=== PATIENT | male | born 1960 | race African-American/Black ===

== ENCOUNTER 2024-07-03 15:18 | Inpatient (IN) | payer MEDICAID, OTHER ==
[~2024-07-03] VITALS: Ht 185.4 cm; Wt 77.4 kg
--- NOTE | 2024-07-03 15:48 | ED.PDOC ---
Altered Mental Status HPI Comments HPI: 64 y/o M, brought in by with PMHX of DM, CVA, bipolar disorder, and anger issues presents to the ED for CC of confusion. Per patient's , patient had x2 episodes of coughing attacks two days ago and since then the onset of his confusion symptoms started. reports some slurred speech, and slow gait following episodes. Patient reports, patient is non-complainant with DM medication. Patent blood sugar read high x2 on glucometer in ED triage. No other symptoms or modifying factors present at this time due to patient condition. VITALS: T:98.6 HR:129 RR:18 BP:115/76 SPO2:98% Past Medical History: DM, BIPOLAR DISORDER, CVA, "ANGER ISSUES" Past Surgical History:DENIES ANY HPI: Poor Historian. REVIEW OF SYSTEMS: CONSTITUTIONAL: Denies acute: fever, diaphoresis, chills, HEAD: Denies acute: headache, photophobia Eyes: Denies acute: Double vision, vision loss, eye pain, eye discharge. EARS: Denies acute: tinnitus, hearing loss, ear discharge, ear pain, THROAT: Denies acute: sore throat, swelling, difficulty swallowing , pain with swallowing, change in voice. NECK: Denies acute: neck pain, neck swelling, stiff neck. HEART: Denies acute : chest pain, palpitations, LUNGS: Denies acute: SOB, wheezing, cough, hemoptysis ABDOMEN: Denies acute: abdominal pain, Nausea, Vomiting, diarrhea, melena , hematemesis, hematochezia SKIN: Denies acute: rash, redness, lesions, itchiness. EXTREMITIES: Denies acute: calf pain, numbness, tingling, weakness, denies pain in extremity. Denies acute: Low back pain. Neuro: Denies acute: focal neurological deficit, motor or sensory focal neurological deficit, tremors, seizure like activity, loss of bowel or bladder function, cauda equina like symptoms. : Denies acute: dysuria, hematuria, flank pain, increase in urinary frequency. PSYCH: Denies acute: hallucination, suicidal ideation, homicidal ideation. PHYSICAL EXAM: General: ---mild-----acute distress, awake and alert. Head: normocephalic, atraumatic. Neck: supple, trachea is midline, no swelling. Throat: Normal phonation. Eyes:, no erythema, no purulent discharge, no proptosis, no icterus. Heart: regular tachycardic, no significant murmur appreciated. Lungs: no apparent respiratory distress, Able to speak in full sentences. No wheezing, no rhonchi, no crackles. No stridors Clear to auscultation bilaterally. Abdomen: non tender to palpation, non distended, soft, no guarding, no rebound, + bowel sounds. Neuro: Awake, Alert, oriented to name, self, situation, follows commands GCS=15. Speech is normal. Skin: no petechia, no purpura, no cyanosis, non-pale, not jaundice. Lower extremities: --trace - Pitting edema no deformity, no focal swelling, no calf TTP. Makes eye contact. moves all four extremities. Face: no apparent facial droop. Ambulating in the ED independently. Ears: Normal appearing TM b/l, Stroke: finger to nose cerebellar testing is intact. No pronator drift. PERRLA, EOM-I CN 2-12 are grossly intact, No nystagmus. No nuchal rigidity, Kernig's sign, Brudzinski's sign, no meningeal signs. ED COURSE: Chief Complaint: Confusion Time Seen by MD: 15:30 Reviewed Notes: Nurses Notes, Medications, Allergies Allergies: Coded Allergies: NO KNOWN ALLERGIES (Unverified , 07/03/24) Information Source: Relative, Spouse Mode of Arrival: Ambulatory Severity: Moderate Timing: Days Duration: Since onset Prehospital treatment: None Quality: Decreased Alertness, Change in Behavior, Confusion Recent: Cough History of: Diabetes Associated Signs and Symptoms: Slurred Speech Was a procedure done? Was a procedure done?: No Differential Diagnosis (ALOC) Differential Diagnosis: Other (DDX include CVA, TGA, cerebellar ischemia/infarct, carotid stenosis, Intracranial mass/infection/bleed, encephalopathy, electrolyte abnormality, thyroid disease, hydrocephalus, hypoglycemia, drug toxicity, cardiac arrhythmia, seizure, infection in the elderly, Hyperammonemia., kidney failure., sepsis.) X-Ray, Labs, Meds, VS Vital Signs Date Time Temp Pulse Resp B/P (MAP) Pulse Ox O2 Delivery O2 Flow Rate FiO2 07/03/24 21:00 97.9 100 18 118/63 (81) 96 97.9 07/03/24 19:35 105 18 97 Room Air* 0 21 07/03/24 19:35 97.5 105 18 122/78 (93) 97 97.5 07/03/24 18:30 112 15 111/45 (67) 98 07/03/24 16:25 119 07/03/24 16:16 123 07/03/24 16:00 98.6 122 20 138/86 (103) 93 98.6 07/03/24 16:00 122 20 93 Room Air* 0 21 07/03/24 15:36 98.6 129 18 115/76 (89) 98 98.6 Lab Test 07/03/24 19:42 07/03/24 19:30 07/03/24 18:15 07/03/24 17:31 Range/Units POC Glucose 430 *H 70-106 mg/dl Troponin I High Sensitivity 5 4 </=54 ng/L Urine Color Colorless Yellow Urine Clarity Clear Clear Urine pH 5.0 5.0-9.0 Urine Specific [place] 1.027 1.001-1.035 Urine Protein Negative Negative Urine Ketones Trace Negative Urine Blood Negative Negative /uL Urine Nitrite Negative Negative Urine Bilirubin Negative Negative Urine Urobilinogen Normal Negative mg/dL Urine Leukocyte Esterase Trace Negative /uL Urine RBC 1 0 - 3 /hpf Urine Microscopic WBC 16 H 0-3 /HPF Urine Squamous Epithelial Cells Few <5 /hpf Urine Bacteria None seen None Seen /hpf Urine Mucus Few None Seen Urine Glucose 4+ H Normal mg/dL Urine Opiates Screen Neg NEGATIVE Urine Fentanyl Screen Neg NEGATIVE Urine Barbiturates Screen Neg NEGATIVE Urine Phencyclidine Screen Neg NEGATIVE Urine Amphetamines Screen Neg NEGATIVE Urine Benzodiazepines Screen Neg NEGATIVE Urine Cocaine Screen Neg NEGATIVE Urine Cannabinoids Screen Pos NEGATIVE Test 07/03/24 16:22 07/03/24 15:54 07/03/24 15:38 07/03/24 15:37 Range/Units White Blood Count 8.3 4.4-10.8 10^3/uL Red Blood Count 3.99 L 4.5-5.90 10^6/uL Hemoglobin 12.1 L 13.5-17.5 g/dL Hematocrit 37.1 L 41.0-53.0 % Mean Corpuscular Volume 93.1 80.0-100.0 fL Mean Corpuscular Hemoglobin 30.4 28.0-32.0 pg Mean Corpuscular Hemoglobin Concent 32.6 32.0-36.0 g/dL Red Cell Distribution Width 15.2 H 11.8-14.3 % Platelet Count 197 140-450 10^3/uL Mean Platelet Volume 10.4 6.9-10.8 fL Neutrophils (%) (Auto) 75.0 37.0-80.0 % Lymphocytes (%) (Auto) 16.1 10.0-50.0 % Monocytes (%) (Auto) 7.1 0.0-12.0 % Eosinophils (%) (Auto) 1.3 0.0-7.0 % Basophils (%) (Auto) 0.5 0.0-2.0 % Neutrophils # (Auto) 6.2 1.6-8.6 10 ^3/uL Lymphocytes # (Auto) 1.3 0.4-5.4 10 ^3/uL Monocytes # (Auto) 0.6 0-1.3 10 ^3/uL Eosinophils # (Auto) 0.1 0-0.8 10 ^3/uL Basophils # (Auto) 0 0-0.2 10 ^3/uL Nucleated Red Blood Cells 0.0 % Prothrombin Time 10.0 9.3-11.8 sec Prothrombin Time INR 0.94 0.9-1.15 Activated Partial Thromboplast Time 24.1 L 24.5-34.5 SEC Sodium Level 122 L 136-145 mmol/L Potassium Level 4.4 3.5-5.1 mmol/L Chloride Level 88 L 98-107 mmol/L Carbon Dioxide Level 21 20-31 mmol/L Anion Gap 13 5-15 Blood Urea Nitrogen 20 9-23 mg/dL Creatinine 2.20 H 0.700-1.30 mg/dL Glomerular Filtration Rate Calc 33 >90 mL/min BUN/Creatinine Ratio 9.1 L 10.0-20.0 Serum Glucose 776 *H 74-106 mg/dL Lactic Acid Level 1.6 0.4-2.0 mmol/L Calcium Level 9.7 8.7-10.4 mg/dL Magnesium Level 2.5 1.6-2.6 mg/dL Total Bilirubin 0.3 0.2-1.0 mg/dL Aspartate Amino Transferase (AST) 14 13-40 U/L Alanine Aminotransferase (ALT) 17 7-40 U/L Alkaline Phosphatase 207 H 46-116 U/L Troponin I High Sensitivity 5 </=54 ng/L B-Type Natriuretic Peptide 3.47 0-100 pg/mL Total Protein 7.9 5.7-8.2 g/dL Albumin 5.0 H 3.2-4.8 g/dL Beta-Hydroxybutyric Acid 1.287 H < 0.4 mmol/L Plasma/Serum Blood Alcohol 4.6 <10 mg/dL Blood Gas Specimen Type Arterial Blood Gas Sample Site Left radial Blood Gas Patient Temperature 37.0 Arterial Blood Date Drawn [id number] Arterial Blood pH 7.430 7.350-7.450 Arterial Blood Partial Pressure CO2 33.2 L 35.0-48.0 mmHg Arterial Blood Partial Pressure O2 69.4 L 83.0-108.0 mmHg Arterial Blood HCO3 21.5 21.0-28.0 mmol/L Arterial Blood Oxygen Saturation 94.1 94.0-98.0 % Arterial Blood Base Excess -2.0 -2.0-3.0 mmol/L Arterial Blood Oxyhemoglobin 91.6 L 94.0-98.0 % Arterial Blood Carboxyhemoglobin 2.5 H 0.5-1.5 % Arterial Blood Methemoglobin 0.2 0.0-1.5 % Dank Test Yes Blood Gas Total Hemoglobin 12.60 L 13.5-17.5 g/dL Blood Gas Liter Flow 0.00 Blood Gas Modality Room air FiO2 % 21.0 POC Glucose > 600 *H > 600 *H 70-106 mg/dl Current Medications Medications (Trade) Dose Ordered Sig/[facility] Route Start Time Stop Time Status Last Admin Sodium Chloride 1,000 ml @ 1,000 mls/hr Q1H ONCE IV 07/03/24 16:15 07/03/24 17:14 DC 07/03/24 16:44 Sodium Chloride 1,000 ml @ 1,000 mls/hr Q1H ONCE IV 07/03/24 17:15 07/03/24 18:14 DC 07/03/24 18:50 Insulin Human Regular (InsuLIN R) 5 units ONCE ONCE IV 07/03/24 17:15 07/03/24 17:16 DC 07/03/24 18:[address] [address] Ph: [phone] DIAGNOSTIC IMAGING Diagnostic Imaging Report : [id number] Signed PATIENT: JULIO AGUILA ACCT: [id number] UNIT: [id number] : 1960 LOC: ER ROOM / BED: / AGE / SEX: 64 / M ADM STATUS: REG ER SERVICE 1536 ORDERING PHYSICIAN: JUAN STRANGE DO PROCEDURE(s): CXRP - CHEST PORTABLE REASON: weak ORDER NUMBER(s): [id number], ACCESSION NUMBER(s): [id number] CHEST RADIOGRAPH Indication: weak Technique: Single frontal view of the chest was obtained Comparison: None FINDINGS: Lines and Tubes: None Lungs: No focal consolidation. PROBABLE bowel gas noted below both diaphragms if pneumoperitoneum is of clinical concern recommend CT abdomen pelvis Pleura: No effusion. No pneumothorax. Cardiomediastinal contours: Unremarkable Bones: No acute osseous abnormality. IMPRESSION: 1. Mildly prominent bronchovascular markings right base. Acute versus chronic disease can not be distinguished without comparison studies. ATED BY: SHELBI BARNES Jr., DO DICTATED DATE/TIME: 07/03/241627 SIGNED BY: SHELBI BARNES Jr., SIGNED DATE/TIME: 07/03/241627 CC: [place] [id number] Ph: [phone] DIAGNOSTIC IMAGING Diagnostic Imaging Report : [id number] Signed PATIENT: JULIO AGUILA ACCT: [id number] UNIT: [id number] : 1960 LOC: ER ROOM / BED: / AGE / SEX: 64 / M ADM STATUS: REG ER SERVICE 1536 ORDERING PHYSICIAN: JUAN STRANGE DO PROCEDURE(s): HWOCT - HEAD WITHOUT CONTRAST REASON: weak ORDER NUMBER(s): [id number], ACCESSION NUMBER(s): [id number] Procedure: CT HEAD WITHOUT CONTRAST Study Date and Requested Time: 07/03/2024 04:00 PM History: weak Comparison: None Dose: CTDI: 60.01 mGy DLP: 1062.45 mGycm Technique: Multiplanar images obtained through the brain without intravenous contrast. Findings: Normal brain volume and formation. Mild chronic small vessel ischemic changes. No hemorrhages, masses, mass effect, midline shift, herniation or cytotoxic yaneth a following a large vascular territory. No intra-axial or extra-axial fluid collections. No evidence of hydrocephalus. The basal cisterns are patent. The pituitary gland, sella and parasellar regions are unremarkable. The cerebellar tonsils are in normal position. The cerebellum is unremarkable. The orbits and globes are unremarkable. Opacification of the right sphenoid sinus with bony hyperostosis of the right sphenoid sinus. Small layering fluid within the left sphenoid sinus. Mucous periosteal thickening of the left anterior maxillary sinus. Otherwise, the paranasal sinuses and mastoids are clear. There are no worrisome calvarial lesions. Impression: No evidence of acute intracranial abnormality. ATED BY: HOLLEY RAI DO DICTATED DATE/TIME: 07/03/24 1628 SIGNED BY: HOLLEY RAI DO SIGNED DATE/TIME: 07/03/24 1628 CC: Time of 1ST Reevaluation: 16:00 Reevaluation 1ST: Unchanged Patient Education/Counseling: Diagnosis, Treatment Family Education/Counseling: Diagnosis, Treatment Comments Patient presented with the above HPI.-altered mental status/possible strok e-----workup was initiated. patient was found with the above mentioned diagnosis. the following medications were ordered: please refer to order lists of meds and tests obtained by myself Dr. Strange. Patient ED course and VS have been stabilized. Patient has been reassessed in the ED and remained in a stable condition. Pertinent incidental findings were discussed with the patient and/or family. Patient/family voices understanding and is agreeable with plan. Patient has been observed in the ED adequate length of time to insure improvement/stability. Escalation of care considered: Consideration of escalation to observation or admission Sepsis protocol was initiated. Fluids and antibiotics ordered. Patient has no apparent focal deficits. Patient was ADMITTED to the medicine team for further evaluation and treatment of their presentation. All the reports of any imaging studies that were ordered by myself were reviewed by myself. Departure 1 Departure Time of Disposition: 16:22 Impression: Primary Impression: Altered mental status Additional Impressions: Hypoxemia Uncontrolled diabetes mellitus with hyperglycemia Noncompliance with medications UTI (urinary tract infection) Disposition: ADMITTED INPATIENT Admit to: Tele Condition: Guarded Additional Instructions: [place] [id number] Ph: [phone] DIAGNOSTIC IMAGING Diagnostic Imaging Report : [id number] Signed PATIENT: JULIO AGUILA ACCT: [id number] UNIT: [id number] : 1960 LOC: ER ROOM / BED: / AGE / SEX: 64 / M ADM STATUS: REG ER SERVICE 1539 ORDERING PHYSICIAN: JUAN STRANGE DO PROCEDURE(s): CXRP - CHEST PORTABLE REASON: weak ORDER NUMBER(s): [id number], ACCESSION NUMBER(s): [id number] CHEST RADIOGRAPH Indication: weak Technique: Single frontal view of the chest was obtained Comparison: None FINDINGS: Lines and Tubes: None Lungs: No focal consolidation. PROBABLE bowel gas noted below both diaphragms if pneumoperitoneum is of clinical concern recommend CT abdomen pelvis Pleura: No effusion. No pneumothorax. Cardiomediastinal contours: Unremarkable Bones: No acute osseous abnormality. IMPRESSION: 1. Mildly prominent bronchovascular markings right base. Acute versus chronic disease can not be distinguished without comparison studies. ATED BY: SHELBI BARNES Jr., DO DICTATED DATE/TIME: 07/03/241627 SIGNED BY: SHELBI BARNES Jr., SIGNED DATE/TIME: 07/03/24 162 CC: [place] [id number] Ph: [phone] DIAGNOSTIC IMAGING Diagnostic Imaging Report : [id number] Signed PATIENT: JULIO AGUILA ACCT: [id number] UNIT: [id number] : 1960 LOC: ER ROOM / BED: / AGE / SEX: 64 / M ADM STATUS: REG ER SERVICE 1536 ORDERING PHYSICIAN: JUAN STRANGE DO PROCEDURE(s): HWOCT - HEAD WITHOUT CONTRAST REASON: weak ORDER NUMBER(s): [id number], ACCESSION NUMBER(s): [id number] Procedure: CT HEAD WITHOUT CONTRAST Study Date and Requested Time: 07/03/2024 04:00 PM History: weak Comparison: None Dose: CTDI: 60.01 mGy DLP: 1062.45 mGycm Technique: Multiplanar images obtained through the brain without intravenous contrast. Findings: Normal brain volume and formation. Mild chronic small vessel ischemic changes. No hemorrhages, masses, mass effect, midline shift, herniation or cytotoxic edema following a large vascular territory. No intra-axial or extra-axial fluid collections. No evidence of hydrocephalus. The basal cisterns are patent. The pituitary gland, sella and parasellar regions are unremarkable. The cerebellar tonsils are in normal position. The cerebellum is unremarkable. The orbits and globes are unremarkable. Opacification of the right sphenoid sinus with bony hyperostosis of the right sphenoid sinus. Small layering fluid within the left sphenoid sinus. Mucous periosteal thickening of the left anterior maxillary sinus. Otherwise, the paranasal sinuses and mastoids are clear. There are no worrisome calvarial lesions. Impression: No evidence of acute intracranial abnormality. ATED BY: HOLLEY RAI DO DICTATED DATE/TIME: 07/03/241627 SIGNED BY: HOLLEY RAI DO SIGNED DATE/TIME: 07/03/24 162 CC: Discharged With: Self Critical Care Note Critical Care Time?: Yes (45 min-critical care time only) Heart Score Heart Score: Heart Score Response (Comments) Value History N/A 0 EKG N/A 0 Age N/A 0 Risk Factors N/A 0 Troponin N/A 0 Total 0 I personally scribed for JUAN STRANGE DO ([email or web address]) on 07/03/24 at 15:48. Electronically submitted by Margarita Puente ([email or web address]). I personally scribed for JUAN STRANGE DO ([email or web address]) on 07/03/24 at 16:14. Electronically submitted by Margarita Puente ([email or web address]). I personally scribed for JUAN STRANGE DO ([email or web address]) on 07/03/24 at 16:32. Electronically submitted by Margarita Puente ([email or web address]). I personally scribed for JUAN STRANGE DO ([email or web address]) on 07/03/24 at 16:33. Electronically submitted by Margarita Puente ([email or web address]). I personally scribed for JUAN STRANGE DO ([email or web address]) on 07/03/24 at 16:35. Electronically submitted by Margarita Puente ([email or web address]). JUAN STRANGE DO Jul 03, 2024 15:48
[2024-07-03 16:00] VITALS: PULSE 122; RESP 20; O2SAT 93
--- NOTE | 2024-07-03 16:30 | DVH ---
Procedure: CT HEAD WITHOUT CONTRAST Study Date and Requested Time: 07/03/2024 04:00 PM History: weak Comparison: None Dose: CTDI: 60.01 mGy DLP: 1062.45 mGycm Technique: Multiplanar images obtained through the brain without intravenous contrast. Findings: Normal brain volume and formation. Mild chronic small vessel ischemic changes. No hemorrhages, masses, mass effect, midline shift, herniation or cytotoxic edema following a large v ascular territory. No intra-axial or extra-axial fluid collections. No evidence of hydrocephalus. The basal cisterns are patent. The pituitary gland, sella and parasellar regions are unremarkable. The cerebellar tonsils are in nor mal position. The cerebellum is unremarkable. The orbits and globes are unremarkable. Opacification of the right sphenoid sinus with bony hyperosto sis of the right sphenoid sinus. Small layering fluid within the left sphenoid sinus. Mucous perioste al thickening of the left anterior maxillary sinus. Otherwise, the paranasal sinuses and mastoids ar e clear. There are no worrisome calvarial lesions. Impression: No evidence of acute intracranial abnormality.
--- NOTE | 2024-07-03 16:31 | DVH ---
CHEST RADIOGRAPH Indication: weak Technique: Single frontal view of the chest was obtained Comparison: None FINDINGS: Lines and Tubes: None Lungs: No focal consolidation. PROBABLE bowel gas noted below both diaphragms if pneumoperitoneum is of clinical concern recommend CT abdomen pelvis Pleura: No effusion. No pneumothorax. Cardiomediastinal contours: Unremarkable Bones: No acute osseous abnormality. IMPRESSION: 1. Mildly prominent bronchovascular markings right base. Acute versus chronic disease can not be dist inguished without comparison studies.
[2024-07-03 16:43] LABS: Basophils # (auto) 0 10 ^3/uL (0-0.2); Basophils % (auto) 0.5 % (0.0-2.0); Eosinophils # (auto) 0.1 10 ^3/uL (0-0.8); Eosinophils % (auto) 1.3 % (0.0-7.0); Hematocrit 37.1 % (41.0-53.0); Hemoglobin 12.1 g/dL (13.5-17.5); Lymphocytes # (auto) 1.3 10 ^3/uL (0.4-5.4); Lymphocytes % (auto) 16.1 % (10.0-50.0); Mean Corpuscular Hemoglobin 30.4 pg (28.0-32.0); Mean Corpuscular Hgb Conc. 32.6 g/dL (32.0-36.0); Mean Corpuscular Volume 93.1 fL (80.0-100.0); Monocytes # (auto) 0.6 10 ^3/uL (0-1.3); Monocytes % (auto) 7.1 % (0.0-12.0); Neutrophils # (auto) 6.2 10 ^3/uL (1.6-8.6); Platelet Count (auto) 197 10^3/uL (140-450); Red Blood Cells 3.99 10^6/uL (4.5-5.90); Red Cell Distribution Width 15.2 % (11.8-14.3); White Blood Cell 8.3 10^3/uL (4.4-10.8)
[2024-07-03] MEDS: SODIUM CHLORIDE 0.9% 1,000 ML IV ONE ×2 (16:44→18:50)
[2024-07-03 16:50] LABS: Alanine Aminotransferase 17 U/L (7-40); Anion Gap 13 (5-15); Aspartate Aminotransferase 14 U/L (13-40); BUN/Creatinine Ratio 9.1 (10.0-20.0); Blood Alcohol 4.6 mg/dL (<10); Blood Urea Nitrogen 20 mg/dL (9-23); Calcium 9.7 mg/dL (8.7-10.4); Carbon Dioxide 21 mmol/L (20-31); Magnesium 2.5 mg/dL (1.6-2.6); Potassium 4.4 mmol/L (3.5-5.1); Total Protein 7.9 g/dL (5.7-8.2)
[2024-07-03 17:00] LABS: Alkaline Phosphatase 207 U/L (46-116); Chloride 88 mmol/L (98-107); Sodium 122 mmol/L (136-145)
[2024-07-03 17:01] LABS: Bilirubin, Total 0.3 mg/dL (0.2-1.0)
[2024-07-03 17:04] LABS: INR 0.94 (0.9-1.15); Partial Thromboplastin Time 24.1 SEC (24.5-34.5)
[2024-07-03 17:06] LABS: Glucose 776 mg/dL (74-106)
[2024-07-03] MEDS: InsuLIN REG 1unit/0.01ml Soln (100units/ml) IV ONE (18:17)
[2024-07-03 19:32] LABS: Urine Bacteria None Seen /hpf (None Seen)
[2024-07-03 19:35] VITALS: PULSE 105; RESP 18; O2SAT 97
[2024-07-03 19:44] LABS: Urine Blood Negative /uL (Negative); Urine Clarity Clear (Clear); Urine Color Colorless (Yellow); Urine Mucus FEW (None Seen); Urine Protein, UAD Negative (Negative); Urine Specific Gravity 1.027 (1.001-1.035); Urine Squamous Epithelial Cell FEW /hpf (<5); Urine Urobilinogen Normal (Negative); Urine WBC 16 /HPF (0-3)
[2024-07-03 19:55] LABS: Cannabinoid Screen, Urine Pos (NEGATIVE)
[2024-07-03 20:35] LABS: Amphetamine Screen, Urine Neg (NEGATIVE); Barbiturate Scree,Urine Neg (NEGATIVE); Benzodiazephine Screen, Urine Neg (NEGATIVE); Cocaine Screen, Urine Neg (NEGATIVE); Opiate Scree,Urine Neg (NEGATIVE); Phencyclidine Screen, Urine Neg (NEGATIVE)
[2024-07-03] MEDS ORDERED: ONDANSETRON HCL 4 MG/2 ML VIAL IV PRN (22:45)
[2024-07-03] MEDS: cefTRIAXone 1GM/50ML D5W 50 ML IV ONE (22:46)
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
[2024-07-03] MEDS ORDERED: DEXTROSE (50%) 50ML SYRG IV PRN (23:00)
[2024-07-03] MEDS ORDERED: cefTRIAXone 1GM/50ML D5W 50 ML IV ONE (23:00)
[2024-07-03] MEDS ORDERED: SODIUM CHLORIDE 0.9% 1,000 ML IV ONE (23:00)
[2024-07-03 23:16] LABS: Chloride 103 mmol/L (98-107); Potassium 3.8 mmol/L (3.5-5.1)
[2024-07-03 23:17] LABS: Anion Gap 9 (5-15); Calcium 9.1 mg/dL (8.7-10.4)
[2024-07-03 23:18] LABS: Carbon Dioxide 20 mmol/L (20-31); Sodium 132 mmol/L (136-145)
[2024-07-03 23:22] LABS: BUN/Creatinine Ratio 9.7 (10.0-20.0); Blood Urea Nitrogen 16 mg/dL (9-23)
[2024-07-03 23:23] LABS: Glucose 383 mg/dL (74-106)
[2024-07-03 23:36] LABS: Cholesterol 197 mg/dL (< 200); Triglycerides 411 mg/dL (< 150)
[2024-07-03 23:37] LABS: HDL Cholesterol 37 mg/dL (40-59)
[2024-07-04] VITALS (7 sets, daily range): BP systolic 124–145; BP diastolic 76–81; PULSE 96–107; RESP 16–79; TEMP 97.4–98; O2SAT 94–98
[2024-07-04] MEDS ORDERED: ACCU-CHEK COMFORT CURVE STRIP VI SCH
[2024-07-04] MEDS ORDERED: DEXTROSE (50%) 50ML SYRG IV PRN ×2 (01:00→05:00)
[2024-07-04] MEDS ORDERED: ONDANSETRON HCL 4 MG/2 ML VIAL IV PRN (01:00)
[2024-07-04] MEDS: cefTRIAXone 1GM/50ML D5W 50 ML IV SCH (01:00)
[2024-07-04] MEDS: InsuLIN REG 1unit/0.01ml Soln (100units/ml) SC SCH ×2 (01:04→07:05)
[2024-07-04] MEDS: SODIUM CHLORIDE 0.9% 1,000 ML IV ONE (01:04)
[2024-07-04] MEDS: ACCU-CHEK COMFORT CURVE STRIP VI SCH ×2 (01:05→07:05)
[2024-07-04] MEDS: HYDROcodone-ACET 10/325MG TAB PO PRN (03:06)
[2024-07-04] MEDS ORDERED: SERT25TA84 PO (04:34)
[2024-07-04] MEDS ORDERED: QUET25TA37 PO (04:34)
[2024-07-04] MEDS ORDERED: RISP0.5T45 PO (04:34)
[2024-07-04] MEDS ORDERED: METO25TA5 PO (04:34)
[2024-07-04] MEDS ORDERED: METF-370 PO (04:35)
[2024-07-04 06:54] LABS: Chloride 104 mmol/L (98-107)
[2024-07-04 06:55] LABS: Anion Gap 9 (5-15); Calcium 9.3 mg/dL (8.7-10.4); Carbon Dioxide 22 mmol/L (20-31); Potassium 3.5 mmol/L (3.5-5.1); Sodium 135 mmol/L (136-145)
[2024-07-04 07:00] LABS: BUN/Creatinine Ratio 9.8 (10.0-20.0); Blood Urea Nitrogen 13 mg/dL (9-23)
[2024-07-04] MEDS ORDERED: INSULIN LANTUS (GLARGINE) 1 /0.01ml (100units/ml) SC SCH (07:00)
[2024-07-04 07:01] LABS: Basophils # (auto) 0 10 ^3/uL (0-0.2); Basophils % (auto) 0.5 % (0.0-2.0); Eosinophils # (auto) 0.2 10 ^3/uL (0-0.8); Eosinophils % (auto) 2.8 % (0.0-7.0); Hematocrit 33.5 % (41.0-53.0); Hemoglobin 11.2 g/dL (13.5-17.5); Lymphocytes # (auto) 2.2 10 ^3/uL (0.4-5.4); Lymphocytes % (auto) 30.9 % (10.0-50.0); Mean Corpuscular Hemoglobin 30.3 pg (28.0-32.0); Mean Corpuscular Hgb Conc. 33.4 g/dL (32.0-36.0); Mean Corpuscular Volume 90.8 fL (80.0-100.0); Monocytes # (auto) 0.6 10 ^3/uL (0-1.3); Monocytes % (auto) 8.1 % (0.0-12.0); Neutrophils # (auto) 4.1 10 ^3/uL (1.6-8.6); Neutrophils % (auto) 57.7 % (37.0-80.0); Platelet Count (auto) 192 10^3/uL (140-450); Red Blood Cells 3.69 10^6/uL (4.5-5.90); Red Cell Distribution Width 14.3 % (11.8-14.3)
[2024-07-04 07:05] LABS: Glucose 178 mg/dL (74-106)
[2024-07-04] MEDS: ATORVASTATIN 20 MG TAB PO ONE (07:06)
[2024-07-04] MEDS: INSULIN LANTUS (GLARGINE) 1 /0.01ml (100units/ml) SC SCH (07:07)
--- NOTE | 2024-07-04 07:10 | ECG ---
[facility] Test Date: 2024-07-03 Test Time: 22:36:56 Pat Name: JULIO PIERRE Department: ED Room: 0282T Gender: M Abstract Maker: ER : 1960 Requested By: JUAN STRANGE Order Number: [id number] Reading MD: Tk Velez Measurements Intervals [place] Rate: 100 P: 66 SC: 139 QRS: 80 QRSD: 87 T: 29 QT: 372 QTc: 480 Interpretive Statements Sinus tachycardia Borderline T wave abnormalities Borderline prolonged QT interval Baseline wander in lead(s) V5 Electronically Signed On 07-05-2024 18:43:42 PDT by Tk Velez Please click the below link to view image of tracing.
[2024-07-04] MEDS ORDERED: RISP2TAB62 PO (09:32)
[2024-07-04] MEDS ORDERED: QUET1TAB88 PO (09:32)
[2024-07-04] MEDS: PANTOPRAZOLE 40 MG/10 ML VIAL INJ IV SCH (09:38)
[2024-07-04] MEDS ORDERED: DESMOPRESSIN ACET 4 MCG/1 ML AMPULE SUBCUT ONE (09:45)
[2024-07-04] MEDS ORDERED: SERTRALINE HCL 50 MG TAB PO SCH (10:00)
--- NOTE | 2024-07-04 11:03 | ECG ---
[facility] Test Date: 2024-07-03 Test Time: 16:25:10 Pat Name: JULIO PIERRE Department: ER Room: 0282T Gender: M Counter Molder: ILIA : 1960 Requested By: JUAN STRANGE Order Number: [id number] Reading MD: Tk Velez Measurements Intervals [place] Rate: 119 P: 74 OH: 132 QRS: 82 QRSD: 90 T: 3 QT: 354 QTc: 499 Interpretive Statements Sinus tachycardia Borderline right axis deviation Anteroseptal infarct, old Borderline T abnormalities, inferior leads Baseline wander in lead(s) V6 Electronically Signed On 07-05-2024 18:42:52 PDT by Tk Velez Please click the below link to view image of tracing.
[2024-07-04] MEDS: SERTRALINE HCL 50 MG TAB PO SCH (11:15)
[2024-07-04] MEDS: QUEtiapine FUMARATE 100 MG TAB PO SCH (11:16)
[2024-07-04] MEDS: risperiDONE 1 MG TAB PO SCH (11:16)
[2024-07-04 11:25] LABS: Chloride 102 mmol/L (98-107); Potassium 3.9 mmol/L (3.5-5.1)
[2024-07-04 11:26] LABS: Anion Gap 9 (5-15); Carbon Dioxide 24 mmol/L (20-31)
[2024-07-04 11:27] LABS: Calcium 9.8 mg/dL (8.7-10.4)
[2024-07-04 11:31] LABS: BUN/Creatinine Ratio 10.8 (10.0-20.0); Blood Urea Nitrogen 15 mg/dL (9-23)
[2024-07-04 11:33] LABS: Sodium 135 mmol/L (136-145)
[2024-07-04 11:34] LABS: Glucose 183 mg/dL (74-106)
[2024-07-04] MEDS: SODIUM CHLORIDE 0.9% 1,000 ML IV SCH (14:09)
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
[2024-07-04] MEDS ORDERED: InsuLIN REG 1unit/0.01ml Soln (100units/ml) SC SCH ×2 (22:00)
[2024-07-04] MEDS: ATORVASTATIN 20 MG TAB PO SCH (22:18)
[2024-07-04 22:56] LABS: Chloride 105 mmol/L (98-107); Potassium 3.6 mmol/L (3.5-5.1)
[2024-07-04 22:57] LABS: Anion Gap 8 (5-15); Carbon Dioxide 23 mmol/L (20-31)
[2024-07-04 22:58] LABS: Calcium 9.1 mg/dL (8.7-10.4)
[2024-07-04 23:00] LABS: Sodium 136 mmol/L (136-145)
[2024-07-04] MEDS ORDERED: cefTRIAXone 1GM/50ML D5W 50 ML IV SCH (23:00)
[2024-07-04 23:02] LABS: BUN/Creatinine Ratio 10.1 (10.0-20.0); Blood Urea Nitrogen 13 mg/dL (9-23)
[2024-07-04 23:06] LABS: Glucose 146 mg/dL (74-106)
[2024-07-05 01:00] VITALS: BP 124/80; PULSE 100; RESP 15; TEMP 97.7; O2SAT 94
[2024-07-05] MEDS ORDERED: DEXTROSE (50%) 50ML SYRG IV PRN (01:45)
[2024-07-05] MEDS ORDERED: DOCUSATE SOD 100 MG CAP PO PRN (01:45)
[2024-07-05 05:00] VITALS: BP 129/74; PULSE 103; RESP 15; TEMP 98.2; O2SAT 96
[2024-07-05] MEDS: ACCU-CHEK COMFORT CURVE STRIP VI SCH (06:26)
[2024-07-05] MEDS: InsuLIN REG 1unit/0.01ml Soln (100units/ml) SC SCH (06:30)
[2024-07-05 08:00] VITALS: PULSE 101; PULSE 99; RESP 18; O2SAT 98
[2024-07-05 09:05] VITALS: BP 138/88; PULSE 104; RESP 16; TEMP 97.8; O2SAT 97
[2024-07-05 10:45] LABS: Chloride 106 mmol/L (98-107); Potassium 3.8 mmol/L (3.5-5.1)
[2024-07-05 10:46] LABS: Anion Gap 7 (5-15); Carbon Dioxide 22 mmol/L (20-31); Sodium 135 mmol/L (136-145)
[2024-07-05 10:51] LABS: Blood Urea Nitrogen 11 mg/dL (9-23); Glucose 228 mg/dL (74-106)
[2024-07-05 13:00] VITALS: BP 135/81; PULSE 82; RESP 18; TEMP 98.3; O2SAT 100
[2024-07-05] MEDS ORDERED: CEPH250C PO (16:13)
[2024-07-05] MEDS ORDERED: BLOO1KIT60 XX (16:13)
[2024-07-05] MEDS ORDERED: LANCKIT12 XX (16:13)
[2024-07-05] MEDS ORDERED: ATOR20TA50 PO (16:13)
[2024-07-05] MEDS ORDERED: INSLANTI SC (16:13)
[2024-07-05] MEDS ORDERED: INSREGI SC (16:13)
[2024-07-05 17:02] VITALS: BP 135/89; PULSE 106; RESP 16; TEMP 97.8; O2SAT 96
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
== END 2024-07-05 17:15 | disposition home or self-care (01) | DRG 420 ==
LOC: ER 15:18 → OVERFLOW 23:13 → ER 23:14 → TELE-WESTW 07-04 08:54
PROVIDERS: ADMIT Internal Medicine; ATTEND Internal Medicine
DX: E11.00 Type 2 diabetes mellitus with hyperosmolarity without nonketotic hyperglycemic-hyperosmolar coma (NKHHC) (principal); N17.0 Acute kidney failure with tubular necrosis; G93.41 Metabolic encephalopathy; E11.22 Type 2 diabetes mellitus with diabetic chronic kidney disease; F31.9 Bipolar disorder, unspecified; N18.30 Chronic kidney disease, stage 3 unspecified; N39.0 Urinary tract infection, site not specified; E66.811 Obesity, class 1; E78.1 Pure hyperglyceridemia; Z86.73 Personal history of transient ischemic attack (TIA), and cerebral infarction without residual deficits; Z91.148 Patient's other noncompliance with medication regimen for other reason; I25.2 Old myocardial infarction; Z68.32 Body mass index [BMI] 32.0-32.9, adult
CPT/HCPCS: 36415; 36600; 70450; 71045; 80048; 80053; 80061; 80307; 80320; 81001; 82010; 82805; 82962; 83036; 83605; 83735; 83880; 83930; 84443; 84484; 85025; 85610; 85730; 86141; 87040; 93005; 96365; 96375; 99291; G0378; J1815; J2470